=== PATIENT | female | born 1960 | race Caucasian/White ===

== ENCOUNTER 2020-08-08 07:07 | Day surgery (SDC) | payer OTHER ==
[2020-08-04 11:03] VITALS: BMI 24.2
[2020-08-08] MEDS ORDERED: Fentanyl 100 MCG/2 ML VIAL ONE ×2 (07:20→09:40)
[2020-08-08] MEDS ORDERED: Bacitracin Zinc Ointment 30 gm TUBE ONE (07:22)
[2020-08-08] MEDS ORDERED: Thrombin 5000 UNITS/5 ML VIAL ONE (07:22)
[2020-08-08] MEDS ORDERED: Lidocaine 2% Jelly 5 ML TUBE ONE (07:29)
[2020-08-08] MEDS ORDERED: PROPOFOL 40 ML ONE (07:51)
--- NOTE | 2020-08-08 09:48 | OP ---
DATE OF PROCEDURE: 08/08/2020 [employer] SEPARATOR OPERATOR: Vivi Ramires PA-C PROCEDURES PERFORMED: Anterior cervical discectomy C6-C7. interbody arthrodesis, intervertebral biomechanical device local morselized autograft, demineralized bone matrix, anterior titanium instrumentation, C6-C7. DESCRIPTION OF PROCEDURE: The patient was brought to the operating room and intubated. She was positioned supine with the head in modest extension on a gel-filled donut. An incision was made in the right precervical area and dissected medial to the sternocleidomastoid muscle, identified the anterior cervical spine and the level was confirmed by x-ray. We placed distraction across C6-C7, debrided the intervertebral disk and completely removed the intervertebral disks. The bony endplates were then decorticated for the purpose of arthrodesis and appropriately-sized intervertebral biomechanical PEEK device was then brought into the field. It was filled with demineralized bone matrix, local morselized autograft, and tapped in place securely at C6-C7. Next, an anterior plate was brought into the field and secured to C6 and C7 using two 14-mm screws at each level. The plate was separate and distinct from the interbody device and not integral to it. The wound was then extensively irrigated and MAC hemostasis was secured. The wound was closed in anatomic layers. Job ID: [id number]
[2020-08-08] MEDS ORDERED: Meperidine HCl/PF 25 MG/ML VIAL ONE (10:09)
[2020-08-08] MEDS ORDERED: Lidocaine 1% PF 5 ML VIAL ONE (10:43)
[2020-08-08] MEDS ORDERED: Rocuronium Bromide 10 MG/ML (10ML VIAL) ONE (10:43)
[2020-08-08] MEDS ORDERED: Glycopyrrolate 0.2 MG/ML 5 ML SYRINGE ONE (10:43)
[2020-08-08] MEDS ORDERED: Ondansetron PF 4 MG/2 ML Vial ONE (10:43)
[2020-08-08] MEDS ORDERED: Dexamethasone 20 MG/5 ML VIAL ONE (10:43)
[2020-08-08] MEDS ORDERED: Acetaminophen/Codeine 30-300mg Tablet ONE (12:30)
== END 2020-08-08 13:00 | disposition home or self-care (01) ==
LOC: SDC 07:07
PROVIDERS: ATTEND Neurological Surgery
PROC: 0RG10A0 Fusion of Cervical Vertebral Joint with Interbody Fusion Device, Anterior Approach, Anterior Column, Open Approach (ICD-10-PCS; principal; 2020-08-08)
PROC: 0RT30ZZ Resection of Cervical Vertebral Disc, Open Approach (ICD-10-PCS; principal; 2020-08-08)
DX: M50.123 Cervical disc disorder at C6-C7 level with radiculopathy (principal); M48.02 Spinal stenosis, cervical region; K21.9 Gastro-esophageal reflux disease without esophagitis; E07.9 Disorder of thyroid, unspecified; Z79.899 Other long term (current) drug therapy; Z88.2 Allergy status to sulfonamides
CPT/HCPCS: 76000; C1713; C1776; J0690; J1100; J2175; J2405; J2704; J3010

== ENCOUNTER 2020-08-23 12:26 | Outpatient (CLI) | payer OTHER ==
--- NOTE | 2020-08-23 13:27 | RAD ---
Cervical spine 3 views: 08/23/2020 COMPARISON: None HISTORY: Cervical radiculopathy, status post cervical spine surgery 2 weeks ago FINDINGS: Postoperative clips are noted anterior to the lower neck and in a right para midline region . Anterior discectomy and fusion hardware is present at C6-7. There is mild degenerative change at the atlantoaxial interspace. There is disc space narrowing with degenerative endplate change as well as anterior and posterior ost eophyte formation at C5-6. There is minimal anterolisthesis at C2-3, C3-4, and C4-5. No evidence for hardware failure. No signif icant prevertebral soft tissue swelling. The open-mouth odontoid view demonstrates a normal-appearing dens and C1-2 articulation. IMPRESSION: Postoperative and degenerative change within the cervical spine as detailed above.
== END 2020-08-23 12:27 | disposition home or self-care (01) ==
LOC: TBSIIMAG 12:26
PROVIDERS: ATTEND Neurological Surgery
DX: M47.22 Other spondylosis with radiculopathy, cervical region (principal); Z98.890 Other specified postprocedural states
CPT/HCPCS: 72040

== ENCOUNTER 2020-10-13 13:03 | Outpatient (CLI) | payer OTHER | END 2020-10-13 13:04 | disposition home or self-care (01) | LOC: TBSIIMAG 13:03 | PROVIDERS: ATTEND Neurological Surgery | DX: M54.12 Radiculopathy, cervical region (principal); Z98.1 Arthrodesis status | CPT/HCPCS: 72040 ==